=== PATIENT | male | born 1945 | race Asian ===

== ENCOUNTER 2016-11-02 17:11 | Inpatient (IN) | payer MEDICARE, MEDICAID ==
[2016-11-02 18:02] VITALS: BP 178/88
[2016-11-02] MEDS ORDERED: Maalox 30 mL Cup PO PRN (21:34)
[2016-11-02] MEDS ORDERED: Magnesium Hydroxide (MOM) 30 mL UDC PO PRN (21:34)
[2016-11-03] MEDS: Ferrous Sulfate 325 MG TAB PO SCH ×2 (08:58→16:32)
[2016-11-03] MEDS: Multivitamin Tab PO SCH (09:00)
[2016-11-03] MEDS: Aspirin 81mg Chewable Tab PO SCH (09:00)
--- NOTE | 2016-11-04 02:27 | Psychosocial Evaluation ---
JUSTIFICATION FOR HOSPITALIZATION: The patient was sent from [facility] with increased confusion, seemingly psychotic, paranoid, making some bizarre statements. CHIEF COMPLAINT: "I saw people trying to eat the meat." HISTORY OF PRESENT ILLNESS: This is a 71-year-old male new to the facility, was sent from [facility] due to worsening confusion, bizarre behaviors, bizarre statements, talking about other people eating meats. On [id number], the patient is disoriented, does not know why he is in the hospital, recognizes he is in the hospital, however, rambling nonsensically, difficult to understand, tangential on exam, unable to verbalize a plan for basic food, clothing, and halfway, seems confused. PAST PSYCHIATRIC HISTORY: It is unclear if he has dementia diagnosis. I will try to increase collateral. FAMILY HISTORY: Noncontributory. SOCIAL HISTORY: The patient had been living in a facility. It is unclear how much family support he has. There is ____. Unclear drugs, alcohol, or tobacco. MEDICAL HISTORY: Please see full H and P by Dr. Velazquez. MENTAL STATUS EXAMINATION: Stated age, fair eye contact, appearing actually younger than stated age, rambling nonsensically, disoriented, tangential on exam, appears paranoid, talking about other people eating meats, states he is scared of other people. Insight diminished. Judgment diminished. Poor concentration. No overt SI or HI, however. PROVISIONAL DIAGNOSES: Rule out dementia, also psychosis, unspecified; anxiety, unspecified. Under medical, please see full H and P. ESTIMATED LENGTH OF STAY: 5-10 days. THE PATIENT'S STRENGTHS: Unclear. THE PATIENT'S WEAKNESSES: Unclear. ASSESSMENT: The patient is requiring inpatient hospitalization, more confused, appearing paranoid, nonsensical, and rambling. PLAN: We will try to increase collateral. Treatment plan includes group as well as milieu therapy. CONDITIONS FOR DISCHARGE: Improved mood, improved affect, cessation of any SI or HI, a safe discharge plan, good psychiatric followup, and titration of the appropriate medications. JOB# [id number]
[2016-11-04] MEDS: Ferrous Sulfate 325 MG TAB PO SCH ×2 (08:31→16:38)
[2016-11-04] MEDS: Aspirin 81mg Chewable Tab PO SCH (08:32)
[2016-11-04] MEDS: Multivitamin Tab PO SCH (08:33)
--- NOTE | 2016-11-04 18:29 | History & Physical ---
MEDICAL HISTORY AND PHYSICAL: REASON FOR ADMISSION: Psychiatric disorder. HISTORY OF PRESENT ILLNESS: This is a 71-year-old male with underlying history diabetes mellitus, hypertension, overactive bladder, hyperlipidemia and BPH, who was admitted for evaluation of underlying psychiatric illness by Dr. Downs. Dr. Downs requested medical H and P on this patient. The patient said that he is doing fine. He denies any current complaints or concerns. PAST MEDICAL HISTORY: As per HPI. PAST SURGICAL HISTORY: No reported significant past surgeries. FAMILY HISTORY: Noncontributory. SOCIAL HISTORY: He lives at a group home facility. Denies any alcohol, tobacco or street drug use. CURRENT MEDICATIONS: Medication reconciliation list reviewed. ALLERGIES: No known drug allergies reported. REVIEW OF SYSTEMS: The patient denies any fever, no chills, no nausea, no vomiting, no abdominal pain, no headache, no trouble breathing, no dysuria, no hematuria, no constipation, no diarrhea, no rectal bleeding or any other complaints. PHYSICAL EXAMINATION: VITAL SIGNS: Temperature 97.4, pulse 85, respirations 19, blood pressure 139/83, oxygen saturation 99% room air. Pain is 0/10. GENERAL APPEARANCE: The patient does not seem in distress. HEART: S1, S2 normal. LUNGS: CTA bilaterally. ABDOMEN: Soft, nontender. No distention. NEUROLOGIC: The patient is awake and alert, moves all extremities. No focal deficits. EXTREMITIES: No edema. LABORATORY DATA: No available laboratory data. ASSESSMENT: 1. Acute exacerbation of psychiatric disorders. 2. Hypertension. 3. Hyperlipidemia. 4. Diabetes mellitus. 5. Benign prostatic hypertrophy. 6. Asthma. PLAN: Psych evaluation and management per psychiatrist. We will continue the patient's current medications including Benicar, metformin, Singulair, Lopid, Isordil, Proscar, amlodipine and Fosamax. The patient's blood sugar will be monitored by Accu-Cheks. Insulin sliding scale coverage will be given. The patient's condition and plan discussed with the nursing staff. The patient has been medically stable to participate in activities of Geropsych Unit. JOB# [id number]
--- NOTE | 2016-11-04 22:29 | Progress Notes ---
SUBJECTIVE: The patient seen, chart reviewed, discussed with staff. The patient transferred from ____ [facility] due to increased confusion, paranoia, bizarre statements. On [id number], the patient tells me he was transferred from another hospital, but has no idea why. He states he was living at a board and care, states that people there were doing "bad things." He was talking about people eating meat yesterday, not really making sense, especially somewhat paranoid. I did call the family yesterday left a voice message. Currently pending a call back. Concerns for his ability to be cared for at a lower level of care. The patient did present with some increased confusional episodes and continued concerns about his thought processes. He does require redirection and needing prompting for ADLs, prompting to eat. ASSESSMENT AND PLAN: The patient remains symptomatic, confused, still making odd statements. PLAN: We will continue to monitor, increase collateral. [facility]# [id number]
[2016-11-05] MEDS: Multivitamin Tab PO SCH (09:28)
[2016-11-05] MEDS: Aspirin 81mg Chewable Tab PO SCH (09:29)
[2016-11-05] MEDS: Ferrous Sulfate 325 MG TAB PO SCH ×2 (09:29→16:27)
--- NOTE | 2016-11-06 06:06 | Progress Notes ---
SUBJECTIVE: The patient was seen, chart reviewed, and discussed with staff. The patient remains bizarre, nonsensical, still has not heard back from family, very little information, very little collateral. The patient is still talking about being scared of people at the board and care, talking about how people were eating meat there. I am not sure what this means. I do not know what the context is behind the statements. The patient noted to be wandering or requiring some redirection, supervision, prompting for ADLs, prompting for eating. ASSESSMENT: The patient is taking his medications, but remains fairly confused, bizarre, making some nonsensical statements. PLAN: We will await a call back from family. We will continue to monitor and increase collateral. [facility]# [id number]
[2016-11-06] MEDS: Aspirin 81mg Chewable Tab PO SCH (09:52)
[2016-11-06] MEDS: Ferrous Sulfate 325 MG TAB PO SCH ×2 (09:52→16:30)
[2016-11-06] MEDS: Multivitamin Tab PO SCH (09:53)
[2016-11-07] MEDS: Aspirin 81mg Chewable Tab PO SCH (10:19)
[2016-11-07] MEDS: Ferrous Sulfate 325 MG TAB PO SCH ×2 (10:19→17:15)
[2016-11-07] MEDS: Multivitamin Tab PO SCH (10:21)
--- NOTE | 2016-11-07 11:05 | Progress Notes ---
SUBJECTIVE: The patient was seen, chart reviewed, discussed with staff. The patient remains symptomatic, still difficult to understand him. Making some odd statements, talking about "eating needs" at the facility he had been at previously, still trying to get more increased collaterals, still pending a call back from family, sleeping well, eating well, some wandering episodes, needing prompting for eating, prompting for ADLs. ASSESSMENT AND PLAN: The patient remains bizarre, still seemingly paranoid. We will continue to monitor and titrate medications. JOB# [id number]
--- NOTE | 2016-11-07 18:20 | Progress Notes ---
SUBJECTIVE: The patient was seen, chart reviewed, discussed with staff. The patient remains apparently confused, wandering, withdrawn, isolative, still making some odd comments, still feeling unsafe to go back to his nursing facility. His son did call me. I will be calling him back today. The patient currently on Risperdal, very low dose and Ativan as needed. Still requiring some prompting for ADLs, prompting to eat, still talking about people eating "meat at the nursing facility." ASSESSMENT: The patient disoriented and confused. The patient had been agitated. He seems to be calmer now. PLAN: We will continue to monitor. We will reach out to son today. The patient remains symptomatic, not safe for a lower level of care, still with safety concerns. JOB# [id number]
[2016-11-08] MEDS: Aspirin 81mg Chewable Tab PO SCH (08:46)
[2016-11-08] MEDS: Ferrous Sulfate 325 MG TAB PO SCH ×2 (08:46→17:37)
[2016-11-08] MEDS: Multivitamin Tab PO SCH (08:47)
--- NOTE | 2016-11-09 01:09 | Progress Notes ---
Covering for Dr. Downs. Case discussed with staff of the patient, reviewed records. This is a 71-year-old male who was admitted on 11/02/2016 because of confusion and agitation. He was sent from [facility] because of worsening confusion, bizarre behavior and bizarre statements talking about other people, eating ____. The patient was very disoriented, disorganized. He does not know why he was in the hospital. Rambling, making nonsensical statements, difficult to understand. The patient so far has been on Risperdal 0.25 mg daily with no side effects, no sedation, no nausea, no extrapyramidal symptoms. We will continue to work with patient in group therapy, milieu therapy, adjust the medication as needed. JOB# [id number]
[2016-11-09] MEDS: Ferrous Sulfate 325 MG TAB PO SCH ×2 (09:48→16:20)
[2016-11-09] MEDS: Multivitamin Tab PO SCH (09:50)
[2016-11-09] MEDS: Aspirin 81mg Chewable Tab PO SCH (09:51)
--- NOTE | 2016-11-10 01:00 | Progress Notes ---
SUBJECTIVE: The patient was seen, chart reviewed, and discussed with staff. The patient remains symptomatic, responding to internal stimuli, spoke with the son a long history of schizophrenia, paranoia. The patient with some acting up behaviors. He has been violent on the unit requiring emergency medications, emergency Ativan. Tolerant to medications, still wandering, saying ____ bizarre things, unable to care for his basic needs. Sleeping well and eating with prompting. ASSESSMENT: The patient remains symptomatic, still psychotic, still can be aggressive, violent, and paranoid. PLAN: Increase Risperdal today. JOB# [id number]
[2016-11-10] MEDS ORDERED: Haloperidol Lactate 5 mg/mL 1mL Vial ONE (08:04)
[2016-11-10] MEDS ORDERED: Haloperidol Lactate 5 mg/mL 1mL Vial IM ONE (08:10)
[2016-11-10] MEDS: Aspirin 81mg Chewable Tab PO SCH (13:06)
[2016-11-10] MEDS: Ferrous Sulfate 325 MG TAB PO SCH ×2 (13:06→17:43)
[2016-11-10] MEDS: Multivitamin Tab PO SCH (13:17)
--- NOTE | 2016-11-11 04:31 | Progress Notes ---
SUBJECTIVE: The patient seen, chart reviewed, discussed with staff. The patient required emergency medications this morning, Haldol cocktail. He was combative, aggressive, highly paranoid, not following any rules or directions. On [id number], the patient oppositional, refusing interview, still paranoid, internally preoccupied, giving the reasons why he is refusing medications ____ "I don't need it". ASSESSMENT AND PLAN: The patient remains psychotic, agitated, psychotic agitation. PLAN: Haldol 5, Ativan 1, Benadryl 25 this morning on an emergent basis. Pending a Riese hearing. JOB# [id number]
[2016-11-11] MEDS: Ferrous Sulfate 325 MG TAB PO SCH ×2 (09:34→17:02)
[2016-11-11] MEDS: Multivitamin Tab PO SCH (09:34)
[2016-11-11] MEDS: Aspirin 81mg Chewable Tab PO SCH (09:34)
--- NOTE | 2016-11-12 02:59 | Progress Notes ---
SUBJECTIVE: The patient seen, chart reviewed, discussed with staff. The patient remains symptomatic, agitated, combative, requiring emergency medications yesterday, posturing psychotic agitation, not yobany for safety, delusional, refusing medications and paranoid. ASSESSMENT: The patient remains combative, dangerous, violent requiring emergency medications. We will encourage med compliance, monitor closely. The patient is not safe for discharge, long history of schizophrenia. JOB# [id number]
[2016-11-12] MEDS: Multivitamin Tab PO SCH (08:16)
[2016-11-12] MEDS: Aspirin 81mg Chewable Tab PO SCH (08:17)
[2016-11-12] MEDS: Ferrous Sulfate 325 MG TAB PO SCH ×2 (08:17→16:12)
--- NOTE | 2016-11-13 01:31 | Progress Notes ---
SUBJECTIVE: The patient was seen, chart reviewed, discussed with staff. The patient remains symptomatic, still agitated. The patient has been combative on the unit, delusional and believes his nursing staff are Moldovan spies. The patient continues to state he does not want to take medications, does not need medications. Long history of schizophrenia, poor attention ADLs, needs prompting to eat. ASSESSMENT: The patient gravely disabled, danger to others, combative, delusional, paranoid and poor medication compliance. PLAN: We will initiate 72-hour hold, 14-day hold and a Riese petition today. Continue to encourage medication compliance. JOB# [id number]
[2016-11-13] MEDS: Aspirin 81mg Chewable Tab PO SCH (08:35)
[2016-11-13] MEDS: Multivitamin Tab PO SCH (08:35)
[2016-11-13] MEDS: Ferrous Sulfate 325 MG TAB PO SCH ×2 (08:35→16:43)
--- NOTE | 2016-11-13 19:34 | Progress Notes ---
SUBJECTIVE: Chart was reviewed and the patient interviewed. Also, discussed the patient's condition with the staff and reviewed records and labs. The patient remains confused and he is still easily agitated. The patient also is still angry and he still thinks that staff are trying to hurt him and that the nursing staff are "Macedonian spies." The patient also is still angry and is still paranoid and is still suspicious. The patient also is still reluctant to take medications because of his paranoia and delusions, but he is taking his medications. Otherwise, the patient denies any side effects of medications. ASSESSMENT: The patient is still psychotic and considered to be gravely disabled. TREATMENT PLAN: We will continue to monitor his behavior and his condition closely. Also, continue adjusting psychotropic medications and work on his impulse control. JOB# [id number]
[2016-11-14] MEDS: Ferrous Sulfate 325 MG TAB PO SCH ×2 (09:03→17:26)
[2016-11-14] MEDS: Aspirin 81mg Chewable Tab PO SCH (09:03)
[2016-11-14] MEDS: Multivitamin Tab PO SCH ×2 (09:04→09:16)
--- NOTE | 2016-11-15 05:57 | Progress Notes ---
SUBJECTIVE: Chart reviewed and the patient interviewed. Also discussed the patient's condition with the staff and reviewed records and labs. The patient is taking his medications orally. He is still suspicious and he is still paranoid and still needs lots of redirections. Also, still has episodes of agitation and irritability, although seems to be slightly less than before. He is still delusional and talking about Eritrean spies are among the staff and the staff themselves are spies from [place]. The patient also still has ____ ADLs and still needs some assistance with his ADLs, but still gets combative when staff tries to help him with his ADLs. ASSESSMENT: The patient is still agitated and psychotic. TREATMENT PLAN: Continue to monitor his ____ and his condition closely. Also, the patient has started to take his medications ____ and we will continue to adjust medications and work on his poor impulse control and his psychosis. JOB# [id number]
[2016-11-15] MEDS: Aspirin 81mg Chewable Tab PO SCH (09:22)
[2016-11-15] MEDS: Ferrous Sulfate 325 MG TAB PO SCH ×2 (09:34→16:58)
[2016-11-15] MEDS: Multivitamin Tab PO SCH (09:35)
[2016-11-15] MEDS ORDERED: Haloperidol Lactate 5 mg/mL 1mL Vial ONE (14:50)
[2016-11-15] MEDS ORDERED: Haloperidol Lactate 5 mg/mL 1mL Vial IM ONE (14:55)
[2016-11-15] MEDS: Haldol Oral Sol.(concentrate) 10 mg/5 mL Udc PO SCH (17:01)
--- NOTE | 2016-11-16 02:03 | Progress Notes ---
SUBJECTIVE: The patient seen, chart reviewed, and discussed with staff. The patient remains symptomatic, bizarre, delusional, stating that people on the unit are spying, stating that when he flew from [place] to the [place] years ago, he was given poison, nonsensical. He is aggressive. Staff involved stating, "[place] free [place]." The Janae petition was upheld. He will be getting Haldol and Haldol Decanoate. ASSESSMENT: The patient is combative, psychotic, paranoid, delusional, and not safe for discharge. PLAN: Rijunie was upheld. We will give medications against his will. JOB# [id number]
[2016-11-16] MEDS: Haloperidol Lactate 5 mg/mL 1mL Vial IM PRN ×2 (09:01→17:50)
[2016-11-16] MEDS: Aspirin 81mg Chewable Tab PO SCH (09:01)
[2016-11-16] MEDS: Multivitamin Tab PO SCH (09:02)
[2016-11-16] MEDS: Ferrous Sulfate 325 MG TAB PO SCH ×2 (09:02→17:51)
[2016-11-16] MEDS: Haldol Oral Sol.(concentrate) 10 mg/5 mL Udc PO SCH ×2 (09:02→17:51)
[2016-11-17] MEDS: Haldol Oral Sol.(concentrate) 10 mg/5 mL Udc PO SCH (10:02)
[2016-11-17] MEDS: Aspirin 81mg Chewable Tab PO SCH (10:03)
[2016-11-17] MEDS: Multivitamin Tab PO SCH (10:03)
[2016-11-17] MEDS: Ferrous Sulfate 325 MG TAB PO SCH ×2 (10:04→17:17)
[2016-11-17] MEDS ORDERED: Haldol Oral Sol.(concentrate) 10 mg/5 mL Udc PO SCH (12:26)
--- NOTE | 2016-11-17 23:10 | Progress Notes ---
SUBJECTIVE: The patient seen, chart reviewed and discussed with staff. The patient still remains symptomatic, highly delusional and paranoid believing that there are spies on the unit, Macedonian spies, still agitated, aggressive, refusing medications, although on a positive note, he took his medications this morning without intramuscular backup, but remains with poor insight, does not want to take medications. Does not believe he has mental illness, wants his own doctor to come ____ him in the unit, currently under Riese petition. Sleeping fairly well, eating with prompting and poor ADLs. ASSESSMENT: The patient remains delusional, highly suspicious, paranoid and aggressive. PLAN: Continue to monitor. We will likely need to increase medications. He is on Haldol Decanoate, but still symptomatic. They will increase Haldol to 4 mg twice daily and continue to monitor closely including monitoring for any side effects, which is extrapyramidal side effects, none noted at this time. [facility]# [id number]
--- NOTE | 2016-11-18 00:14 | Progress Notes ---
SUBJECTIVE: The patient seen, chart reviewed, discussed with staff. The patient remains highly aggressive, follows me down the unit in an aggressive manner to the point that staff has intervened, yelling "it's a free [place]," not making much sense, still responding to internal stimuli, internally preoccupied, continued psychotic agitation, still refusing medications, getting intramuscular injections of Haldol, also getting Haldol Decanoate. No side effects noted. For example no extrapyramidal side effects, sleeping fairly well, eating with prompting, remains unkempt, disheveled. ASSESSMENT AND PLAN: The patient is still symptomatic, still aggressive, still delusional, believing that people on the unit are spies and shinny spies. Still claiming he got poisoned in [place]. We will continue to monitor, encourage medication compliance. JOB# [id number]
[2016-11-18] MEDS: Ferrous Sulfate 325 MG TAB PO SCH ×2 (09:30→17:26)
[2016-11-18] MEDS: Aspirin 81mg Chewable Tab PO SCH (09:30)
[2016-11-18] MEDS: Multivitamin Tab PO SCH (09:30)
[2016-11-18] MEDS: Haldol Oral Sol.(concentrate) 10 mg/5 mL Udc PO SCH (17:27)
[2016-11-19] MEDS: Aspirin 81mg Chewable Tab PO SCH (08:30)
[2016-11-19] MEDS: Multivitamin Tab PO SCH (08:30)
[2016-11-19] MEDS: Ferrous Sulfate 325 MG TAB PO SCH ×2 (08:31→16:47)
[2016-11-19] MEDS: Haldol Oral Sol.(concentrate) 10 mg/5 mL Udc PO SCH ×2 (08:33→16:45)
--- NOTE | 2016-11-19 08:49 | Progress Notes ---
SUBJECTIVE: The patient is seen. He remains paranoid, delusional, still aggressive at times. On a positive note, he is taking his medications, following ____ redirections. He is not struck out. No physical altercations No EPS noted. Sleeping well, eating well, seems to have better attention to ADLs. ASSESSMENT: The patient seems to be improving, remains delusional, believing that people in the unit are spies. PLAN: We will continue to monitor closely. We will continue to adjust his medications, remains symptomatic and psychotic and not safe for discharge. JOB# [id number]
--- NOTE | 2016-11-20 02:39 | Progress Notes ---
SUBJECTIVE: The patient was seen, chart reviewed, discussed with staff. The patient remains symptomatic, still paranoid, believing that some staff members are spies, calmer however, he is taking his medications, seems to have better attention to ADLs, no escalation of behaviors. No agitation. He states the medication is "too strong," complaining of _sedation___ throughout the day. No SI, no HI. ASSESSMENT: The patient remains symptomatic, still paranoid, delusional, history of violence, however, improvement noted. PLAN: We will decrease Haldol today, monitor closely. JOB# [id number]
[2016-11-20] MEDS: Ferrous Sulfate 325 MG TAB PO SCH ×2 (09:24→16:35)
[2016-11-20] MEDS: Multivitamin Tab PO SCH (09:24)
[2016-11-20] MEDS: Aspirin 81mg Chewable Tab PO SCH (09:25)
[2016-11-20] MEDS: Haldol Oral Sol.(concentrate) 10 mg/5 mL Udc PO SCH ×2 (09:28→16:35)
--- NOTE | 2016-11-21 04:36 | Progress Notes ---
SUBJECTIVE: The patient seen, chart reviewed, discussed with staff. The patient remains paranoid, delusional, still believing that nursing staff are Kyrgyz spies, still does not want to take the medications; however, he is taking the medications essentially by force because he does not want to get the intramuscular injection. The patient is still claiming he does not need the medications, still stating that his doctor told him he does not need it and he wants to see his outside doctor, but his outside doctor does not have privileges at [facility], which I have explained to him many times. He is calmer, no combative behaviors, no agitation, sleeping fairly well, eating with prompting, somewhat better attention to ADLs. ASSESSMENT: The patient remains symptomatic, still delusional, psychotic, paranoid. PLAN: Continue to monitor. The patient is with continued poor insight. Continue Haldol, no side effects, no EPS for example. JOB# [id number]
[2016-11-21] MEDS: Haldol Oral Sol.(concentrate) 10 mg/5 mL Udc PO SCH ×2 (08:55→16:11)
[2016-11-21] MEDS: Aspirin 81mg Chewable Tab PO SCH (08:56)
[2016-11-21] MEDS: Multivitamin Tab PO SCH (08:57)
[2016-11-21] MEDS: Ferrous Sulfate 325 MG TAB PO SCH ×2 (08:57→16:09)
--- NOTE | 2016-11-21 20:52 | Progress Notes ---
SUBJECTIVE: The patient seen, chart reviewed, discussed with staff. The patient remains symptomatic, still paranoid, believing that staff members are Georgian spies. However, no violent episodes, still requiring some prompting to take his medications. No EPS noted. No side effects noted. Still fixated on his outside doctor coming to this hospital, still does not want to take the medications, still with continued poor insight. ASSESSMENT: The patient seems to be improving, more amenable to treatment, but still delusional. PLAN: Continue to monitor, titrate medications, continue to encourage med compliance, work on his coping and insight. JOB# [id number]
[2016-11-22] MEDS: Haldol Oral Sol.(concentrate) 10 mg/5 mL Udc PO SCH ×2 (08:51→16:55)
[2016-11-22] MEDS: Ferrous Sulfate 325 MG TAB PO SCH ×2 (08:52→16:57)
[2016-11-22] MEDS: Multivitamin Tab PO SCH (08:53)
[2016-11-22] MEDS: Aspirin 81mg Chewable Tab PO SCH (08:53)
--- NOTE | 2016-11-22 19:17 | Progress Notes ---
SUBJECTIVE: The patient seen, chart reviewed, discussed with staff. The patient remains paranoid, delusional, still feels that some staff members are spies; however, on a positive note, he is taking his medications, friendlier towards staff. No agitation, no escalation of behaviors, eating better, mildly better attention ADLs. No side effects noted. No longer refusing medications. ASSESSMENT: Improvement noted still with delusions, still with psychosis, but less. No longer violent or aggressive. PLAN: Continue to monitor, monitor for side effects and work on the patient's coping and insight. JOB# [id number]
[2016-11-23] MEDS: Haldol Oral Sol.(concentrate) 10 mg/5 mL Udc PO SCH ×2 (09:40→16:25)
[2016-11-23] MEDS: Aspirin 81mg Chewable Tab PO SCH (09:41)
[2016-11-23] MEDS: Multivitamin Tab PO SCH (09:41)
[2016-11-23] MEDS: Ferrous Sulfate 325 MG TAB PO SCH ×2 (09:42→16:26)
--- NOTE | 2016-11-23 18:16 | Progress Notes ---
SUBJECTIVE: The patient seen, chart reviewed, discussed with staff. The patient still remains symptomatic, still refusing medications at times, but seems to be more willing to take it, still believing that some people on the unit are spies, but less intrusive, less ruminative, calmer, more cooperative, also with better attention ADLs, seems to be sleeping well, eating well and getting along better with staff and peers. No longer needing emergency medications. He is taking his medications with prompting. No overt SI or HI. ASSESSMENT: Improvement noted: Psychotic symptoms seem to be dissipating, less dangerous, less violent and more amenable to care. PLAN: We will continue to monitor. Continue to encourage medication compliance. [facility]# [id number]
[2016-11-24] MEDS: Aspirin 81mg Chewable Tab PO SCH (08:52)
[2016-11-24] MEDS: Ferrous Sulfate 325 MG TAB PO SCH (08:52)
[2016-11-24] MEDS: Multivitamin Tab PO SCH (08:52)
[2016-11-24] MEDS: Haldol Oral Sol.(concentrate) 10 mg/5 mL Udc PO SCH (08:54)
[2016-11-24] MEDS ORDERED: Ferrous Sulfate 325 MG TAB PO SCH (17:00)
--- NOTE | 2016-11-24 22:52 | Discharge Summary ---
JUSTIFICATION FOR HOSPITALIZATION: The patient was sent in from a board and care, aggressive, agitated, and psychotic. CHIEF COMPLAINT: Psychotic decompensation. HISTORY OF PRESENT ILLNESS: A 71-year-old male with long history of schizophrenia, decompensated at nursing facility, aggressive, agitated, combative, paranoid, delusional. PAST PSYCHIATRIC HISTORY: Multiple and many psychiatric hospitalizations ___ per collateral_ from son. PAST MEDICAL HISTORY: Please see full H and P by Dr. Velazquez includes diabetes and hypertension. ALLERGIES: Reviewed. MEDICATIONS: Reviewed. SOCIAL HISTORY: The patient has a son. The patient is living in a board and care. MENTAL STATUS EXAMINATION: Please see full psych eval for details. PROVISIONAL DIAGNOSIS: Schizophrenia. Medical, as noted. HOSPITAL COURSE: After initial assessment, the patient was admitted. He was refusing medications, I placed him on a hold, also filed a Reise petition which was upheld. Began to medicate him, he did have some tendency toward violence and combative behaviors. He thought that other people on the unit were Bengali spies, was delusional, believing that he had been poisoned on his way from [place] to the [facility]; however, as the hospitalization progressed, the patient was noted to be improving, sleeping well, eating well, getting along better with staff and peers. Delusion seemed to be dissipating, amenable to treatment. No side effects, able to verbalize his needs. By 11/24/2016, placement was confirmed and he was discharged. CONDITION UPON DISCHARGE: Improved. Better attention to ADLs, better eye contact. Speech within normal limits. Mood is "okay." Affect constricted. Thought processes were more linear. Thought content, no SI, no HI, better control of his psychotic symptoms, no longer aggressive or agitated. Better insight, taking his medications. DISCHARGE DIAGNOSIS: Schizophrenia, poor medication and treatment compliance. Medical: See full H and P. PROGNOSIS: The patient continues to take his medications and follows the treatment plan. Prognosis will improve, otherwise guarded. JOB# [id number] ANDREW
== END 2016-11-24 15:30 | DRG 885 ==
LOC: GERO 17:11
PROVIDERS: ADMIT Psychiatry & Neurology Psychiatry; ATTEND Psychiatry & Neurology Psychiatry
DX: F20.9 Schizophrenia, unspecified (principal); E11.9 Type 2 diabetes mellitus without complications; F41.9 Anxiety disorder, unspecified; I10 Essential (primary) hypertension; E78.5 Hyperlipidemia, unspecified; N40.0 Benign prostatic hyperplasia without lower urinary tract symptoms; J45.909 Unspecified asthma, uncomplicated; F22 Delusional disorders
CPT/HCPCS: 82948-90; 90899; G0410; J1200; J1630; J1631; J2060; Z7610